=== PATIENT | female | born 1935 | race Caucasian/White ===

== ENCOUNTER 2020-12-26 09:11 | Emergency (ER) | payer MEDICARE ==
[~2020-12-26] VITALS: Ht 157.5 cm; Wt 62.2 kg
[~2020-12-26 09:11] MED LIST: AMIT75TA PO; ASCO500C2 PO; ASPI-496 PO; CALC-570 PO; CALC625T23 PO; CARV-39 PO; CHOL10003 PO; FAMO40TA4 PO; HYDROCHLOROTH12.5 MG PO; KRIL1CAP21 PO; LEVO50TA5 PO; LOSA50TA14 PO; MULT-717 PO; OXYC1TAB14 PO; SELE200T10 PO; SIMV40TA20 PO; VITA-74 PO
[2020-12-26 09:19] VITALS: BP 164/73
--- NOTE | 2020-12-26 09:42 | NUR ---
LEFT NARE NOSEBLEED STARTED APPROX 2 HOURS AGO. INTRODUCED AFRIN AT HOME INSTRUCTED WHEN SHE WAS AT [facility] DECEMBER 18 FOR SAME. NOSE CLAMP IN PLACE AND NO BLEEDING AT THIS TIME.
--- NOTE | 2020-12-26 10:05 | NUR ---
PT SITTING IN CHAIR, NOSE CLAMP IN PLACE, NO BLEEDING. FAMILY AT BS. NO NEEDS AT THIS TIME.
--- NOTE | 2020-12-26 10:45 | NUR ---
Patient given discharge instructions and they have confirmed that they understand the instructions. Patient ambulatory with steady gait.
== END 2020-12-26 10:47 | disposition home or self-care (01) ==
LOC: ED 10:45
DX: R04.0 Epistaxis (principal); I10 Essential (primary) hypertension
CPT/HCPCS: 30901; 99284